=== PATIENT | female | born 1935 | race Caucasian/White ===

== ENCOUNTER 2016-07-31 09:07 | Emergency (ER) | payer MEDICARE ==
[2016-07-31 09:55] LABS: BASO % 0.3 % (0.1-1.2); EOS # 0.1 10_X3_uL (0.0-0.4); EOS % 0.7 % (0.7-5.8); GRAN # 5.3 10_X3_uL (1.6-6.1); GRAN % 73.9 % (34.0-71.1); HEMATOCRIT 42.2 % (34-45); LYMPH % 13.2 % (19.3-51.7); MEAN CORPUSCULAR HEMOGLOBIN 30.2 pg (27.0-33.0); MEAN CORPUSCULAR HGB CONC 33.2 g/dL (32.0-36.0); MEAN CORPUSCULAR VOLUME 91.1 fL (79-95); MEAN PLATELET VOLUME 11.3 fl (7.5-11.5); MONO # 0.9 10_X3_uL (0.2-0.9); MONO % 11.9 % (4.7-12.5); PLATELET COUNT 210 x10_3/uL (182-369); RED BLOOD COUNT 4.63 x10_6/uL (3.9-5.2); WHITE BLOOD COUNT 7.2 x10_3/uL (4.0-10.0)
[2016-07-31 10:08] LABS: CALCIUM 9.1 mg/dL (8.7-10.7); CREATININE 1.2 mg/dL (0.6-1.3)
== END 2016-07-31 16:13 | disposition home or self-care (01) ==
LOC: ER 09:07
PROVIDERS: Emergency Medicine
DX: R07.89 Other chest pain (principal); I44.7 Left bundle-branch block, unspecified; I48.91 Unspecified atrial fibrillation; I50.9 Heart failure, unspecified; E03.9 Hypothyroidism, unspecified; Z79.899 Other long term (current) drug therapy; Z88.1 Allergy status to other antibiotic agents
CPT/HCPCS: 36415; 71020; 78582; 80048; 80162; 82550; 82553; 83880; 85025; 85379; 93005; 99284; 99284-25; A9539; A9540